=== PATIENT | male | born 1975 | race Caucasian/White ===

== ENCOUNTER → 2016-12-06 | Outpatient (CLI) | payer OTHER ==
[~2016-12-06] MED LIST: ATIVAN0.5 MG PO; LEVAQUIN750 MG PO; METADATE ER20 MG PO; NOHOMEMEDS; ZESTRIL40 MG PO
== END | disposition home or self-care (01) ==
LOC: CDC 10:21
DX: I45.9 Conduction disorder, unspecified (principal); K43.2 Incisional hernia without obstruction or gangrene
CPT/HCPCS: 93000

== ENCOUNTER 2016-12-12 07:37 | Day surgery (SDC) | payer OTHER ==
[~2016-12-12] VITALS: Ht 190.5 cm; Wt 88.4 kg
[2016-12-12 08:12] VITALS: BP 161/118
[2016-12-12] MEDS ORDERED: DILAUDID4 MG PO (13:02)
[2016-12-12] MEDS ORDERED: MS CONTIN,ORAMO15 M1 PO (13:02)
[2016-12-12] MEDS ORDERED: COLACE100 MG PO (13:09)
[2016-12-12 15:03] VITALS: BP 167/103
[2016-12-12 16:19] VITALS: BP 169/104
[2016-12-12 17:41] VITALS: BP 168/94
[2016-12-13] VITALS (7 sets, daily range): BP systolic 128–172; BP diastolic 76–120
[2016-12-13 09:16] LABS: HEMATOCRIT 42.4 % (38.0-50.0); MCH 31.5 PG (29.0-34.0); MCHC 35.8 G/DL (30.0-36.0); MCV 87.8 FL (86-99); MEAN PLAT.VOLUME 10.5 uM^3 (9.0-12.4); PLATELET COUNT 425 K/uL (156-360); RBC DIS.WIDTH-SD 47.8 % (39-53); RED BLOOD COUNT 4.83 M/uL (4.00-5.50)
[2016-12-13 09:24] LABS: WHITE BLOOD COUNT 23.8 K/uL (4.1-10.2)
[2016-12-13 09:39] LABS: ANION GAP 11 MEQ/L (2-14); CHLORIDE 103 MEQ/L (99-109); MAGNESIUM 1.8 mg/dl (1.3-2.7); POTASSIUM 3.5 MEQ/L (3.7-5.4); SAMPLE HEMOLYSIS CHECK 0; SAMPLE ICTERIC CHECK 0; SAMPLE LIPEMIA CHECK 0; SODIUM 139 MEQ/L (136-147)
[2016-12-13 09:43] LABS: TOTAL BILIRUBIN 1.2 MG/DL (0.0-1.0)
[2016-12-13 09:45] LABS: ALKALINE PHOSPHATASE 58 IU/L (3-129); GFR ESTIMATE (CALCULATED) > 59 mL/min/; GLUCOSE 120 mg/dL (70-99); UREA NITROGEN (BUN) 9 mg/dL (9-23)
== END 2016-12-13 12:53 | disposition home or self-care (01) ==
LOC: SDC → 2SOUTH 13:21 → SDC 14:18 → 2EAST 14:59
PROVIDERS: Surgery
DX: K43.2 Incisional hernia without obstruction or gangrene (principal); Z87.828 Personal history of other (healed) physical injury and trauma
CPT/HCPCS: 80053; 83735; 84100; 85027; C1727; C1781; G0378; J0330; J0690; J1100; J1170; J1885; J2060; J2250; J2405; J3010; J7120

== ENCOUNTER 2018-05-30 11:10 | Inpatient (IN) | payer OTHER ==
[~2018-05-30] VITALS: Ht 190.5 cm; Wt 76.1 kg
[~2018-05-30 11:10] MED LIST changes: +COLACE100 MG PO; +DILAUDID4 MG PO; -METADATE ER20 MG PO; +METHYLPHENIDATE30 M1 PO; +MS CONTIN,ORAMO15 M1 PO
[2018-05-30 13:00] LABS: HEMATOCRIT 40.7 % (38.0-50.0); HEMOGLOBIN 14.1 G/DL (12.5-16.6); MCH 30.9 PG (29.0-34.0); MCHC 34.6 G/DL (30.0-36.0); MCV 89.3 FL (86-99); PLATELET COUNT 477 K/uL (156-360); RBC DIS.WIDTH-CV 13.7 % (11.8-14.6); RED BLOOD COUNT 4.56 M/uL (4.00-5.50)
[2018-05-30 13:04] LABS: CHLORIDE 101 mEq/L (99-109); POTASSIUM 3.4 mEq/L (3.7-5.4); SODIUM 136 mEq/L (136-147)
[2018-05-30 13:06] LABS: GLUCOSE 93 mg/dL (70-99)
[2018-05-30 13:07] LABS: TOTAL PROTEIN 7.5 g/dL (6.4-8.3); WHITE BLOOD COUNT 31.9 K/uL (4.1-10.2)
[2018-05-30 13:08] LABS: TOTAL BILIRUBIN 0.8 mg/dL (0.0-1.0)
[2018-05-30 13:10] LABS: ALKALINE PHOSPHATASE 77 IU/L (3-129); GFR ESTIMATE (CALCULATED) > 59 mL/min/ (58.99-99999)
[2018-05-30 13:11] LABS: UREA NITROGEN (BUN) 6 mg/dL (9-23)
[2018-05-30 13:12] LABS: AST (GOT) 13 IU/L (2-34)
[2018-05-30 13:13] LABS: ALT (GPT) 8 IU/L (3-49)
[2018-05-30] MEDS ORDERED: VIBRAMYCIN100 MG PO (13:20)
[2018-05-30] MEDS ORDERED: MOTRIN600 MG PO (13:22)
[2018-05-30] MEDS ORDERED: SEROQUEL50 MG PO (14:40)
[2018-05-30] MEDS ORDERED: DESYREL 150 MG150 MG PO (14:40)
[2018-05-30 16:44] VITALS: BP 132/74
[2018-05-31 00:04] VITALS: BP 142/80
[2018-05-31 06:17] LABS: BASOPHIL (%) 0.6 % (0-1); BASOPHIL COUNT 0.2 K/uL (0-0.1); EOSINOPHIL (%) 3.6 % (0-5); HEMATOCRIT 38.5 % (38.0-50.0); IMMATURE GRANULOCYTE (%) 0.6 % (0.0-0.7); LYMPHOCYTE (%) 17.9 % (15-42); LYMPHOCYTE COUNT 4.8 K/uL (1.0-2.8); MCH 30.2 PG (29.0-34.0); MCHC 33.8 G/DL (30.0-36.0); MCV 89.3 FL (86-99); MONOCYTE (%) 9.2 % (3-12); MONOCYTE COUNT 2.5 K/uL (0-0.8); NEUTROPHIL (%) 68.1 % (45-76); NEUTROPHIL COUNT 18.2 K/uL (1.8-6.4); PLATELET COUNT 484 K/uL (156-360); RBC DIS.WIDTH-CV 13.8 % (11.8-14.6); RBC DIS.WIDTH-SD 45.2 % (39-53); RED BLOOD COUNT 4.31 M/uL (4.00-5.50); WHITE BLOOD COUNT 26.7 K/uL (4.1-10.2)
[2018-05-31 06:39] LABS: CHLORIDE 109 MEQ/L (99-109); CREATININE 0.9 MG/DL (0.6-1.3); GFR ESTIMATE (CALCULATED) > 59 mL/min/ (58.99-99999); GLUCOSE 84 mg/dL (70-99); SODIUM 142 MEQ/L (136-147); UREA NITROGEN (BUN) 7 mg/dL (9-23)
[2018-05-31 06:49] LABS: POTASSIUM 4.2 MEQ/L (3.7-5.4)
[2018-05-31 06:58] VITALS: BP 143/86
[2018-05-31 15:02] VITALS: BP 148/88
[2018-05-31 23:54] VITALS: BP 150/98
[2018-06-01 06:08] LABS: HEMATOCRIT 39.6 % (38.0-50.0); HEMOGLOBIN 13.5 G/DL (12.5-16.6); MCH 30.3 PG (29.0-34.0); MCHC 34.1 G/DL (30.0-36.0); MCV 88.8 FL (86-99); PLATELET COUNT 521 K/uL (156-360); RBC DIS.WIDTH-CV 13.9 % (11.8-14.6); RBC DIS.WIDTH-SD 45.2 % (39-53); RED BLOOD COUNT 4.46 M/uL (4.00-5.50); WHITE BLOOD COUNT 23.6 K/uL (4.1-10.2)
[2018-06-01 06:31] LABS: CHLORIDE 107 MEQ/L (99-109); CREATININE 0.7 MG/DL (0.6-1.3); GFR ESTIMATE (CALCULATED) > 59 mL/min/ (58.99-99999); GLUCOSE 74 mg/dL (70-99); POTASSIUM 3.8 MEQ/L (3.7-5.4); SODIUM 140 MEQ/L (136-147); UREA NITROGEN (BUN) 5 mg/dL (9-23)
[2018-06-01 07:13] VITALS: BP 152/83
[2018-06-01] MEDS ORDERED: LINEZOLID600 MG PO (16:04)
[2018-06-01 16:24] VITALS: BP 155/95
[2018-06-01 17:31] VITALS: BP 165/100
[2018-06-02] VITALS: BP 169/95
[2018-06-02 05:45] LABS: HEMATOCRIT 41.7 % (38.0-50.0); HEMOGLOBIN 14.5 G/DL (12.5-16.6); MCH 30.4 PG (29.0-34.0); MCHC 34.8 G/DL (30.0-36.0); MCV 87.4 FL (86-99); PLATELET COUNT 557 K/uL (156-360); RBC DIS.WIDTH-CV 13.6 % (11.8-14.6); RBC DIS.WIDTH-SD 43.5 % (39-53); RED BLOOD COUNT 4.77 M/uL (4.00-5.50); WHITE BLOOD COUNT 13.7 K/uL (4.1-10.2)
[2018-06-02 06:13] LABS: CHLORIDE 105 MEQ/L (99-109); CREATININE 0.7 MG/DL (0.6-1.3); GFR ESTIMATE (CALCULATED) > 59 mL/min/ (58.99-99999); GLUCOSE 83 mg/dL (70-99); POTASSIUM 3.9 MEQ/L (3.7-5.4); SODIUM 141 MEQ/L (136-147); UREA NITROGEN (BUN) 7 mg/dL (9-23)
[2018-06-02 07:24] VITALS: BP 145/96
[2018-06-02] MEDS ORDERED: TRAMADOL HCL50 MG PO (10:02)
[2018-06-02] MEDS ORDERED: AMOX TR-K CLV1 EAC4 PO (10:02)
== END 2018-06-02 12:21 | disposition home or self-care (01) | DRG 603 ==
LOC: EME 11:10 → CANRESERV 14:19 → 5SOUTH 14:51 → EDOF 14:51 → 5SOUTH 16:21 → ENPENDDIS 06-02 10:08 → 5SOUTH 06-02 12:21
PROVIDERS: Hospitalist; Nurse Practitioner Family; Physician Assistant
PROC: 0H9EXZX Drainage of Left Lower Arm Skin, External Approach, Diagnostic (ICD-10-PCS; principal; 2018-05-30)
PROC: 0J9H0ZX Drainage of Left Lower Arm Subcutaneous Tissue and Fascia, Open Approach, Diagnostic (ICD-10-PCS; 2018-05-31)
DX: L02.414 Cutaneous abscess of left upper limb (principal); L03.114 Cellulitis of left upper limb; F11.20 Opioid dependence, uncomplicated; G89.29 Other chronic pain; R51 Headache; R20.0 Anesthesia of skin; R20.2 Paresthesia of skin; R41.3 Other amnesia; F90.9 Attention-deficit hyperactivity disorder, unspecified type; I10 Essential (primary) hypertension; F12.90 Cannabis use, unspecified, uncomplicated; F17.210 Nicotine dependence, cigarettes, uncomplicated; Z90.81 Acquired absence of spleen
CPT/HCPCS: 73090; 80048; 80053; 80202; 83605; 85025; 85027; 87040; 87070; 87075; 87076; 87205; 93971; 99281; 99285; A6260; J0295; J0690; J1644; J1885; J2543; J3010; J3370; J7050